=== PATIENT | female | born 1945 | race Caucasian/White ===

== ENCOUNTER 2022-06-18 16:02 | Emergency (ER) | payer MEDICARE, SELFPAY ==
--- NOTE | ~2022-06-18 | CT_ITS ---
EXAMINATION: CT HEAD WITHOUT CONTRAST (STROKE PROTOCOL) CLINICAL INFORMATION: Stroke protocol. COMPARISON: None TECHNIQUE: Contiguous axial imaging was performed from the skull base to vertex without intravenous administration of contrast. This CT examination was performed using dose optimization techniques as appropriate, variously including the following: *Automated exposure control *Adjustment of mA and/or kV according to patient size (this includes techniques or standardized protocols for targeted exams where dose is matched to indication/reason for exam; i.e. extremities or head) *Use of iterative reconstruction technique DLP: 680 mGy-cm FINDINGS: No intracranial hemorrhage is identified. No abnormal extra-axial fluid collection is seen. No significant mass effect or midline structure shift. [place]-white matter interface is maintained. There is periventricular white matter low density consistent with microangiopathy. The ventricles, sulci, and cisterns appear unremarkable. Mucosal thickening is seen throughout the paranasal sinuses consistent with chronic sinusitis. No air-fluid levels are appreciated. Mastoid air cells well aerated. CT/CT head for stroke IMPRESSION: No acute intracranial pathology. Findings consistent with microangiopathy. This critical result was discussed with satnam graff at 4:30 PM hours on June 18, 2022. It was ascertained that the content and urgency of the report was understood at the time of direct communication.
--- NOTE | 2022-06-18 16:05 | ECG_ITS ---
Test Reason : stroke alert Blood Pressure : / mmHG Vent. Rate : 074 BPM Atrial Rate : 074 BPM P-R Int : 156 ms QRS Dur : 090 ms QT Int : 386 ms P-R-T Axes : 045 010 040 degrees QTc Int : 428 ms Normal sinus rhythm Nonspecific ST abnormality Abnormal ECG No previous ECGs available Referred By: Jacque Pierce Electronically Signed By:CELINA CHARLTON MD
[2022-06-18 16:11] VITALS: BP 138/68; PULSE 86; O2SAT 99
[2022-06-18 16:19] VITALS: BP 128/46; PULSE 76; RESP 18; TEMP 36.6; O2SAT 96; BMI 37.1
--- NOTE | 2022-06-18 16:21 | ED_ITS ---
HPI - General Adult General Chief complaint: Neuro Symptoms/Deficit Stated complaint: STROKE ALERT, LKWT 4HRS AGO,AMS, R WEAK,-THINNERS Time Seen by Provider: 06/18/22 16:20 Source: patient, family and EMS Mode of arrival: EMS History of Present Illness HPI narrative: 76-year-old female brought in by EMS after the family called them and noted that patient was altered an seem to be weak with difficulty speaking. EMS states that patient is much improved and as per the family the patient walks and talks very well. Last known well was noon. Patient is COVID-19 positive and does not take blood thinners. Related Data Allergies Allergy/AdvReac Type Severity Reaction Status Date / Time No Known Allergies Allergy Verified 06/18/22 16:05 Review of Systems Review of Systems: Positives and negatives as stated in HPI otherwise ROS is unable to be obtained. [facility] Past Medical History Source: nursing notes reviewed Social History Social History Advance Directives: No Advance Directives Information Provided: No Physical Exam ED Vital Signs: Vital Signs - 24 hr 06/18/22 16:19 06/18/22 20:08 Temperature 97.9 F 98.3 F Pulse Rate 76 72 Respiratory Rate 18 12 Blood Pressure 128/46 L 193/76 H Pulse Oximetry 96 98 Oxygen Delivery Method Room Air Room Air BMI result Body Mass Index 37.1 VITAL SIGNS: Reviewed. GENERAL: Well developed, well nourished, in no acute distress. HEAD: Normocephalic/atraumatic, EYES: PERRLA, EOMI intact without pain, no nystagmus/pallor/icterus noted EARS: Ext canals without abnormality, TMs non-bulging and non-erythematous NOSE: Nares patent bilateral OROPHARYNX: no oral lesions noted, posterior pharynx clear and non-erythematous without noted tonsillar enlargement/erythema/exudates NECK: Supple, no adenopathy LUNGS: Normal breath sounds. No adventitious sounds or accessory muscle use. SpO2<> CARDIOVASCULAR: Regular rate and rhythm without noted murmurs, no JVD or lower extremity edema. ABDOMEN: Soft, non-tender, non-distended with bowel sounds. No rigidity. No guarding. No palpable masses or hernias noted MUSCULOSKELETAL: No tenderness, deformities, or effusions noted on gross inspection. EXTREMITIES: No cyanosis, clubbing or edema. SKIN: Inspection of the skin reveals no rashes, ulcerations, jaundice, pallor, or petechiae. NEUROLOGIC: Alert and oriented x 4. Strength and sensation to light touch were grossly intact x 4. NIH Stroke Scale Internal: Initial- Upon Arrival Level of Consciousness: Alert Level of Consciousness Questions: Answers neither question correctly Level of Consciousness Commands: Performs both tasks correctly Best Gaze: Normal Visual: No visual loss Facial Palsy: Normal Motor Arm (Right): No drift Motor Arm (Left): No drift Motor Leg (Right): No drift Motor Leg (Left): No drift Limb Ataxia: Absent Sensory: Normal Best Language: No aphasia Dysarthia: Normal Extinction and Inattention: No abnormality Score: 2 Course Course Course Narrative: 76-year-old female with history and clinical presentation more consistent with possible infectious etiology, NIH-2, no gross motor or sensory loss and will proceed with CT of the head. Review of all investigations negative with the exception of known underlying COVID-19 as well as known UTI. Patient was given 500 cc of normal saline as well as initial antibiotics. On re-evaluation patient requires 2 assist to get to the bedside commode, states he is unable to care for his at home and remaining family are unable to assist. Patient is otherwise medically cleared, on current treatment for her UTI, and will be referred to Case Management and Physical therapy. Reevaluation(s) Reevaluation #1: I examined the patient with Eugenie, the clinical transplant coordinator, and we are in agreement that there are no gross motor or sensory deficits, patient is outside of the window and is not a candidate for tPA at this time. The observed speech difficulties appear more consistent with possible infectious etiology. Time: 16:05 Reevaluation #2: Negative CT of the head called over to Jacque Pierce. Time: 16:30 Reevaluation #3: Patient placed in physician observation because the patient needed more time for evaluation by case management and physical therapy. At the time observation was started the patient's vital signs were stable, patient is alert and oriented, neuro: Nonfocal, CV RRR, lungs clear Time: 21:31 Medical Decision Making Lab Data Result diagrams: 06/18/22 17:44 06/18/22 17:44 Labs: Lab Results 06/18/22 06/18/22 06/18/22 Range/Units 16:30 16:48 17:44 WBC 9.3 (4.8-10.8) X10*3/uL RBC 4.13 L (4.20-5.50) X10*6/uL Hgb 12.4 (12.0-16.0) g/dl Hct 36.7 L (37.0-47.0) % MCV 88.9 (80.0-98.0) fL MCH 30.0 (27.0-33.0) pg MCHC 33.8 (31.0-35.0) g/dl RDW 13.4 (11.0-16.0) % Plt Count 273 (160-400) X10*3/uL MPV 11.3 (9.4-12.3) fL Immature Gran % (Auto) 0.9 H (0.0-0.4) % Neut % (Auto) 76.3 H (45-73) % Lymph % (Auto) 16.3 L (20-40) % Starke % (Auto) 5.6 (2-11) % Eos % (Auto) 0.5 (0-4) % Baso % (Auto) 0.4 (0-2) % Lymph # (Auto) 1.5 (1.2-4.9) X10*3/uL Starke # (Auto) 0.5 (0.1-1.2) X10*3/uL Eos # (Auto) 0.1 (0.0-0.4) X10*3/uL Baso # (Auto) 0.0 (0.0-0.2) X10*3/uL Abs Immat Gran (auto) 0.08 H (0.00-0.03) X10*3/uL Absolute Neuts (auto) 7.1 (2.0-8.3) x10*3/uL Absolute Nucleated RBC 0.000 (0.0-0.012) X10*3/uL Nucleated RBC % (auto) 0.0 (0.0-0.2) /100WBC PT (10.0-13.1) SEC INR (0.9-1.1) APTT (26.0-36.4) SEC Sodium (135-145) mmol/L Potassium (3.3-5.1) mmol/L Chloride (96-108) mmol/L Carbon Dioxide (22-29) mmol/L Anion Gap (12-20) BUN (9-16) mg/dL Creatinine (0.5-1.4) mg/dL Estim Creat Clear Calc Estimated GFR POC Glucose 118 H (60-115) mg/dL Random Glucose (60-115) mg/dL Lactic Acid (0.5-2.0) mmol/L Calcium (8.4-10.2) mg/dL Total Bilirubin (0.0-1.0) mg/dL Direct Bilirubin (0.0-0.5) mg/dL AST (5-31) U/L ALT (0-31) U/L Alkaline Phosphatase (39-117) U/L Total Creatine Kinase (26-140) U/L Troponin I High Sens (<3.5-17.0) ng/L Total Protein (6.5-8.0) g/dL Albumin (3.5-5.0) g/dL Urine Color Urine Appearance Urine pH (5.0-9.0) Ur Specific [place] (1.005-1.025) Urine Protein (Neg-Trace) mg/dL Urine Glucose (UA) (Negative) mg/dL Urine Ketones (Negative) mg/dL Urine Blood (Negative) Urine Nitrite (Negative) Ur Leukocyte Esterase (Negative) Urine RBC (0-2) /HPF Urine WBC (0-5) /HPF Ur Squamous Epith Cells (0-2) /HPF Urine Bacteria (None Seen) Hyaline Casts (0-2) /LPF Influenza Type A (PCR) NEGATIVE (Negative) Influenza Type B (PCR) NEGATIVE (Negative) RSV RNA Qual (PCR) NEGATIVE (Negative) SARS-CoV-2 RNA (RT-PCR) POSITIVE A (Negative) 06/18/22 06/18/22 06/18/22 Range/Units 17:44 17:44 17:44 WBC (4.8-10.8) X10*3/uL RBC (4.20-5.50) X10*6/uL Hgb (12.0-16.0) g/dl Hct (37.0-47.0) % MCV (80.0-98.0) fL MCH (27.0-33.0) pg MCHC (31.0-35.0) g/dl RDW (11.0-16.0) % Plt Count (160-400) X10*3/uL MPV (9.4-12.3) fL Immature Gran % (Auto) (0.0-0.4) % Neut % (Auto) (45-73) % Lymph % (Auto) (20-40) % Starke % (Auto) (2-11) % Eos % (Auto) (0-4) % Baso % (Auto) (0-2) % Lymph # (Auto) (1.2-4.9) X10*3/uL Starke # (Auto) (0.1-1.2) X10*3/uL Eos # (Auto) (0.0-0.4) X10*3/uL Baso # (Auto) (0.0-0.2) X10*3/uL Abs Immat Gran (auto) (0.00-0.03) X10*3/uL Absolute Neuts (auto) (2.0-8.3) x10*3/uL Absolute Nucleated RBC (0.0-0.012) X10*3/uL Nucleated RBC % (auto) (0.0-0.2) /100WBC PT 10.8 (10.0-13.1) SEC INR 0.9 (0.9-1.1) APTT 27.1 (26.0-36.4) SEC Sodium 142 (135-145) mmol/L Potassium 4.8 (3.3-5.1) mmol/L Chloride 104 (96-108) mmol/L Carbon Dioxide 25 (22-29) mmol/L Anion Gap 18 (12-20) BUN 15 (9-16) mg/dL Creatinine 0.90 (0.5-1.4) mg/dL Estim Creat Clear Calc 64.9 Estimated GFR > 60 POC Glucose (60-115) mg/dL Random Glucose 137 H (60-115) mg/dL Lactic Acid (0.5-2.0) mmol/L Calcium 10.2 (8.4-10.2) mg/dL Total Bilirubin 0.6 (0.0-1.0) mg/dL Direct Bilirubin 0.2 (0.0-0.5) mg/dL AST 51 H (5-31) U/L ALT 41 H (0-31) U/L Alkaline Phosphatase 61 (39-117) U/L Total Creatine Kinase 33 (26-140) U/L Troponin I High Sens < 3.5 (<3.5-17.0) ng/L Total Protein 7.3 (6.5-8.0) g/dL Albumin 4.0 (3.5-5.0) g/dL Urine Color Urine Appearance Urine pH (5.0-9.0) Ur Specific [place] (1.005-1.025) Urine Protein (Neg-Trace) mg/dL Urine Glucose (UA) (Negative) mg/dL Urine Ketones (Negative) mg/dL Urine Blood (Negative) Urine Nitrite (Negative) Ur Leukocyte Esterase (Negative) Urine RBC (0-2) /HPF Urine WBC (0-5) /HPF Ur Squamous Epith Cells (0-2) /HPF Urine Bacteria (None Seen) Hyaline Casts (0-2) /LPF Influenza Type A (PCR) (Negative) Influenza Type B (PCR) (Negative) RSV RNA Qual (PCR) (Negative) SARS-CoV-2 RNA (RT-PCR) (Negative) 06/18/22 06/18/22 06/18/22 Range/Units 17:44 17:44 20:04 WBC (4.8-10.8) X10*3/uL RBC (4.20-5.50) X10*6/uL Hgb (12.0-16.0) g/dl Hct (37.0-47.0) % MCV (80.0-98.0) fL MCH (27.0-33.0) pg MCHC (31.0-35.0) g/dl RDW (11.0-16.0) % Plt Count (160-400) X10*3/uL MPV (9.4-12.3) fL Immature Gran % (Auto) (0.0-0.4) % Neut % (Auto) (45-73) % Lymph % (Auto) (20-40) % Starke % (Auto) (2-11) % Eos % (Auto) (0-4) % Baso % (Auto) (0-2) % Lymph # (Auto) (1.2-4.9) X10*3/uL Starke # (Auto) (0.1-1.2) X10*3/uL Eos # (Auto) (0.0-0.4) X10*3/uL Baso # (Auto) (0.0-0.2) X10*3/uL Abs Immat Gran (auto) (0.00-0.03) X10*3/uL Absolute Neuts (auto) (2.0-8.3) x10*3/uL Absolute Nucleated RBC (0.0-0.012) X10*3/uL Nucleated RBC % (auto) (0.0-0.2) /100WBC PT (10.0-13.1) SEC INR (0.9-1.1) APTT (26.0-36.4) SEC Sodium Cancelled (135-145) mmol/L Potassium Cancelled (3.3-5.1) mmol/L Chloride Cancelled (96-108) mmol/L Carbon Dioxide Cancelled (22-29) mmol/L Anion Gap Cancelled (12-20) BUN Cancelled (9-16) mg/dL Creatinine Cancelled (0.5-1.4) mg/dL Estim Creat Clear Calc Cancelled Estimated GFR Cancelled POC Glucose (60-115) mg/dL Random Glucose Cancelled (60-115) mg/dL Lactic Acid 1.8 (0.5-2.0) mmol/L Calcium Cancelled (8.4-10.2) mg/dL Total Bilirubin Cancelled (0.0-1.0) mg/dL Direct Bilirubin (0.0-0.5) mg/dL AST Cancelled (5-31) U/L ALT Cancelled (0-31) U/L Alkaline Phosphatase Cancelled (39-117) U/L Total Creatine Kinase (26-140) U/L Troponin I High Sens (<3.5-17.0) ng/L Total Protein Cancelled (6.5-8.0) g/dL Albumin Cancelled (3.5-5.0) g/dL Urine Color Yellow Urine Appearance Cloudy Urine pH 6.0 (5.0-9.0) Ur Specific [place] 1.015 (1.005-1.025) Urine Protein Negative (Neg-Trace) mg/dL Urine Glucose (UA) Negative (Negative) mg/dL Urine Ketones Negative (Negative) mg/dL Urine Blood Negative (Negative) Urine Nitrite Negative (Negative) Ur Leukocyte Esterase Large (3+) H (Negative) Urine RBC 0-2 (0-2) /HPF Urine WBC >50 H (0-5) /HPF Ur Squamous Epith Cells 0-2 (0-2) /HPF Urine Bacteria None Seen (None Seen) Hyaline Casts 0-2 (0-2) /LPF Influenza Type A (PCR) (Negative) Influenza Type B (PCR) (Negative) RSV RNA Qual (PCR) (Negative) SARS-CoV-2 RNA (RT-PCR) (Negative) ECG Data Attestation: I personally reviewed and interpreted this ECG as follows: Prior ECG tracings: not available for review Interpretation: Normal sinus rhythm, HR-74, no STEMI, but there are ST changes in the anterolateral leads, IL/QRS/QTC is within normal limits. Critical Care Time Critical Care Time Critical Care Time: Yes Total Critical Care Time: 30 Attestation: I personally attest to this time spent taking care of the patient. Discharge Plan Discharge Clinical Impression: Lab test positive for detection of COVID-19 virus, Physical deconditioning, UTI (urinary tract infection) Patient Disposition: Still a Patient
[2022-06-18 16:34] LABS: Glucose, Whole Blood 118 mg/dL (60-115)
--- NOTE | 2022-06-18 16:40 | MHC.STROKE ---
Addendum entered by Eugenie Rick RN 06/18/22 16:55: THE ALSO MENTIONED THAT SHE IS DIABETIC AND WAS STARTED ON METFORMIN A MONTH AGO AND SHE IS NOT TOLERATING THAT AND SHE WAS SHAKING AND HAD TREMORS FROM IT. Original Note: 1555 EMS PRE-NOTIFIED STROKE ALERT, ARRIVED 1602. LKW APPROX, 1200. EXAMINED BY DR MONTIEL AND MYSELF, NIHSS =[address] DONE PATIENT C/O PAIN UPON MOVING HER, SHE WAS SLOW TO RESPOND TO QUESTIONS AND VAGUE. UNABLE TO DETERMINE WHAT CERTAIN ITEMS ARE. FAMILY ARRIVED AND THEY SAID SHE HAD A SIMILAR PRESENTATION A MONTH AGO AND WENT OT [facility], THE DAUGHTER SEES DR. SWEET AND SHE MADE AN APPOINTMENT FOR HER MOM ON Jun FOR A SECOND OPINION. THEY SAID SHE HAS BEEN WEAK ALL OVER, C/O PAIN, TO CLARIFY THE LKW THE SAID TODAY SHE WAS FINE UNITL 11-12 AND THEN SHE GOT UP TO VACUUM AND BEGAN FEELING WEAK AGAIN, SHE SAT DOWN AND HAD A HARD TIME GETTING UP, NO ENERGY, THE DAUGHTER CAME OVER AND SHE WAS STILL WEAK AND C/O GENERALIZED ACHES AND PAINS, AT ONE POINT SHE WASN'T ABLE TO WALK TO THE BATHROOM AND ATTEND TO HER NEEDS AND THEN THE DAUGHTER DECIDED TO CALL 911 AFTER 3PM TODAY. 3 DAYS AGO THE DAUGHTER DID A HOME COVID TEST AND IT WAS POSITIVE. CASE DISCUSSED WITH DR MONTIEL AND NIHSS = 2 AND ONSET AROUND 4.5 [facility] PL[facility] CARE TEAM UNABLE TO DETERMINE ELIGIBILITY DUE TO NON-FOCAL NEURO SYMPTOMS, NO FACIAL DROOP, NO DRIFT OF ARMS, HER LEGS ARE HEAVY AND SLIGHT EDEMA, PAIN UPON MOVING BOTH LEGS, VAGUE ANSWERS TO QUESTIONS AND DECREASED LOC, + COVID 3 DAYS AGO, SHE IS NOT A CANDIDATE FOR TPA BASED ON THESE FACTORS.
[2022-06-18 17:32] LABS: Influenza A PCR NEGATIVE (Negative); Influenza B PCR NEGATIVE (Negative); Resp Syncy Virus RNA Qual PCR NEGATIVE (Negative); SARS COV2 PCR INHOUSE POSITIVE (Negative)
[2022-06-18 18:06] LABS: INTERNATIONAL NORM RATIO 0.9 (0.9-1.1); Prothrombin Time 10.8 SEC (10.0-13.1)
[2022-06-18 18:08] LABS: Partial Thromboplastin Time 27.1 SEC (26.0-36.4)
[2022-06-18 18:10] LABS: Stroke Lab Use COMPLETE
[2022-06-18 18:16] LABS: Lactic Acid 1.8 mmol/L (0.5-2.0)
[2022-06-18 18:17] LABS: MANUAL DIFF FLAG NO
[2022-06-18 18:19] LABS: Basophils Percent Auto 0.4 % (0-2); Eosinophils Absolute Auto 0.1 X10*3/uL (0.0-0.4); Eosinophils Percent Auto 0.5 % (0-4); Hematocrit 36.7 % (37.0-47.0); Hemoglobin 12.4 g/dl (12.0-16.0); Imm Gran Abs Auto 0.08 X10*3/uL (0.00-0.03); Imm Gran Pct Auto 0.9 % (0.0-0.4); Lymphocytes Absolute Auto 1.5 X10*3/uL (1.2-4.9); Lymphocytes Percent Auto 16.3 % (20-40); Mean Corpuscular HGB Conc 33.8 g/dl (31.0-35.0); Mean Corpuscular Volume 88.9 fL (80.0-98.0); Mean Platelet Volume 11.3 fL (9.4-12.3); Monocytes Absolute Auto 0.5 X10*3/uL (0.1-1.2); Monocytes Percent Auto 5.6 % (2-11); Neutrophils Absolute Auto 7.1 x10*3/uL (2.0-8.3); Neutrophils Percent Auto 76.3 % (45-73); Platelet Count 273 X10*3/uL (160-400); Red Blood Count 4.13 X10*6/uL (4.20-5.50); Red Cell Distribution Width 13.4 % (11.0-16.0); White Blood Count 9.3 X10*3/uL (4.8-10.8)
[2022-06-18 18:22] LABS: Alanine Aminotransferase 41 U/L (0-31); Alkaline Phosphatase 61 U/L (39-117); Anion Gap 18 (12-20); Aspartate Amino Transferase 51 U/L (5-31); Bilirubin Direct 0.2 mg/dL (0.0-0.5); Bilirubin Total 0.6 mg/dL (0.0-1.0); Blood Urea Nitrogen 15 mg/dL (9-16); Calcium 10.2 mg/dL (8.4-10.2); Carbon Dioxide 25 mmol/L (22-29); Chloride 104 mmol/L (96-108); Creatinine Clr Calc Pharmacy 64.9; Estimated Glomerular Filt Rate > 60; Glucose Random 137 mg/dL (60-115); Potassium 4.8 mmol/L (3.3-5.1); Sodium 142 mmol/L (135-145); Total Protein 7.3 g/dL (6.5-8.0)
[2022-06-18 18:26] LABS: Troponin-I High Sensitivity < 3.5 ng/L (<3.5-17.0)
[2022-06-18] MEDS: 0.9 % Sodium Chloride 500 ML 999 ML IV (19:59)
[2022-06-18 20:08] VITALS: BP 193/76; PULSE 72; RESP 12; TEMP 36.8; O2SAT 98
[2022-06-18 20:17] LABS: Appearance Urine Cloudy; Color Urine Yellow; Glucose Urine UA Negative (Negative); Leukocyte Esterase Urine Large (3+) (Negative); Nitrite Urine Negative (Negative); Specific Gravity - Urine 1.015 (1.005-1.025); UMIC TRIGGER UACC YES; Urine Blood Negative (Negative); Urine Ketones Negative (Negative); Urine Protein Negative (Neg-Trace)
[2022-06-18 20:22] LABS: Bacteria Urine None Seen (None Seen); Hyaline Casts Urine 0-2 /LPF (0-2); RBC Urine 0-2 /HPF (0-2); Squamous Epithelial Cell Urine 0-2 /HPF (0-2); UACC Culture Trigger YES; WBC Urine >50 /HPF (0-5)
[2022-06-18] MEDS: cefTRIAXone sodium 1 GM in 0.9 % Sodium Chloride 50 ML IV (21:43)
--- NOTE | 2022-06-18 21:55 | PC.NURSE ---
LATE ENTRY- this rn spoke with pt's daughter and . pt's verbalized feeling uncomfortable with pt being discharged given her status prior to coming to ED. this rn discussed husbands concerns with Dr Parks. Provided put in order for PT/ CM. Discussed this plan with pt daughter as well as patient
--- NOTE | 2022-06-18 22:26 | MHC.CM.PN ---
CM met with patient at request of Dr. Parks. Pt diagnosed with UTI and +covid. Pt needed 2 assist to get up to commode. PT pending. Pt agreeable to STR if recommended. Care Port given of facilities that accept [facility] Medicare. Referrals placed. Pt lives with . Uses no DME/services. Independent. Pt had Pfizer x2 and Boosters x3. No HCP on file. HCP reviewed, completed and signed. Copies given. Uploaded into Care [employer] and [facility]. HCP#1 Clotilde Rivera (daughter) [phone] and HCP#2/son Diego Ruffin ([phone]). CM to follow for d/c needs.
[2022-06-18 22:40] VITALS: BP 145/55; PULSE 68; RESP 9; TEMP 36.8; O2SAT 97
[2022-06-19 04:29] VITALS: BP 167/71; PULSE 59; RESP 11; TEMP 37; O2SAT 98
[2022-06-19 05:36] LABS: Glucose, Whole Blood 114 mg/dL (60-115)
--- NOTE | 2022-06-19 06:01 | PC.NURSE ---
ORIANA DIANE made aware of old Stroke Inr order on Pt Tracker
[2022-06-19 07:53] VITALS: BP 138/59; PULSE 60; RESP 18; TEMP 36.8; O2SAT 94
[2022-06-19 08:49] VITALS: BP 138/59; PULSE 60; O2SAT 94
[2022-06-19 09:04] LABS: Glucose, Whole Blood 121 mg/dL (60-115)
[2022-06-19] MEDS: Amoxicillin/Potassium Clav 875 MG TABLET PO ×2 (09:35→20:36)
--- NOTE | 2022-06-19 09:47 | PC.NURSE ---
Pt alert/oriented. Seen by physical therapy who will recommend short term rehab. Pt aware. Pivot to bedside commode with minimal assist. Denies pain. Speech is clear. Spoke with daughter Clotilde early this AM who is aware of plan for PT/Case management. Pt ate breakfast approx 50%. VSS
--- NOTE | 2022-06-19 10:38 | PHA.MEDREC ---
Pharmacy Consult ? Medication Reconciliation Pharmacy has completed the medication reconciliation. Spoke with ([phone]) and confirmed medications. Cross-referenced with claim history.
[2022-06-19] MEDS: glipiZIDE XL 2.5 MG TAB.ER.24 PO (11:40)
[2022-06-19] MEDS: metFORMIN HCl ER 500 MG TAB.ER.24H PO ×2 (11:40→20:36)
[2022-06-19] MEDS: Fenofibrate 54 MG TABLET PO (11:40)
[2022-06-19] MEDS: lisinopriL 2.5 MG TABLET PO (11:41)
[2022-06-19] MEDS: Cholecalciferol (Vitamin D3) 25 MCG TABLET PO (11:41)
[2022-06-19] MEDS: atenoloL 25 MG TABLET PO (11:41)
--- NOTE | 2022-06-19 14:23 | MHC.CM.ED ---
Pt continues to hold in the ED with COVID + status and weakness. 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 Although her payor, [employer] gives certain contracted SNF 'good pranav' prior auth, her CG status will require administration approval on Tuesday, 06/21 per [facility] referrals. All other centers have either declined until she is Covid recovered ( day 6 vs day 11) or have not yet responded. Message left for pt's dtr Clotilde to call back. ED CM to discuss above w/pt. ED CM to follow.
[2022-06-19 15:54] VITALS: BP 150/62; PULSE 71; RESP 18; TEMP 36.9; O2SAT 96
[2022-06-19 17:13] LABS: Glucose, Whole Blood 95 mg/dL (60-115)
--- NOTE | 2022-06-19 18:54 | PC.NURSE ---
pt was moved into a hospital bed .
--- NOTE | 2022-06-19 18:55 | PC.NURSE ---
pt ate 100 % of dinner ,drank 360 ml fluids .
[2022-06-19 21:03] VITALS: BP 138/52; PULSE 69; RESP 18; TEMP 36.8; O2SAT 99
[2022-06-19 21:12] LABS: Glucose, Whole Blood 127 mg/dL (60-115)
--- NOTE | 2022-06-19 23:10 | PC.NURSE ---
Report received from ORIANA Ramos at 3pm. Pt has been resting comfortably all day. Pt was switched into hospital bed for comfort. Pt is independently ambulatory throughout her room using the commode. Pt ate 100% of her dinner and has reported no pain throughout the day. Pt is sleeping at this time, respirations are even and unlabored
[2022-06-20 06:49] VITALS: BP 139/62; PULSE 68; RESP 18; TEMP 36.9; O2SAT 99
[2022-06-20] MEDS: Fenofibrate 54 MG TABLET PO (09:10)
[2022-06-20] MEDS: Ondansetron ODT 4 MG TAB.RAPDIS TRANSLINGU (09:10)
[2022-06-20] MEDS: atenoloL 25 MG TABLET PO (09:10)
[2022-06-20] MEDS: lisinopriL 2.5 MG TABLET PO (09:10)
[2022-06-20] MEDS: Cholecalciferol (Vitamin D3) 25 MCG TABLET PO (09:10)
[2022-06-20] MEDS: Amoxicillin/Potassium Clav 875 MG TABLET PO (09:10)
[2022-06-20] MEDS: metFORMIN HCl ER 500 MG TAB.ER.24H PO (09:10)
[2022-06-20] MEDS: glipiZIDE XL 2.5 MG TAB.ER.24 PO (09:10)
[2022-06-20 09:12] VITALS: BP 141/83; PULSE 104; RESP 20; O2SAT 99
--- NOTE | 2022-06-20 09:12 | PC.NURSE ---
Addendum entered by Rachel Pa 06/20/22 09:14: tolerated approx 50% of breakfast Original Note: Pt alert/oriented x 3 . reports nausea this AM, no active vomiting noted, zofran given with AM meds, VSS. Spoke with daughter Clotilde this AM and updated on active search for SNF at this time. Breathing easy/unlabored, sat 99% on room air. Skin pwd.
[2022-06-20 11:12] LABS: Glucose, Whole Blood 110 mg/dL (60-115)
[2022-06-20 11:20] VITALS: BP 135/52; PULSE 70; RESP 18; TEMP 36.9; O2SAT 95
--- NOTE | 2022-06-20 12:37 | MHC.CM.ED ---
Met with pt and dtr to review d/c plan. Explained the need for [facility] auth tomorrow in light of the facility concerns from the PT eval. Pt's dtr Clotilde and pt both feel that pt would fare better at home. Clotilde is able to stay with pt for a day or so to assist with home transition. Both receptive to a [facility] referral which was placed. ED care team in agreement w/pt returning to home with [facility] services. Clotilde to tranport pt home.
== END 2022-06-20 12:34 | disposition home or self-care (01) ==
PROVIDERS: Nurse Practitioner Family; Emergency Provider Student in an Organized Health Care Education/Training Program; PCP Internal Medicine
DX: U07.1 COVID-19 (principal); N39.0 Urinary tract infection, site not specified; R29.702 NIHSS score 2; R41.82 Altered mental status, unspecified; R26.81 Unsteadiness on feet; Z79.899 Other long term (current) drug therapy
CPT/HCPCS: 0241U; 36415; 70450; 80053; 80076; 81001; 82248; 82550; 82947; 83605; 84484; 85025; 85610; 85730; 87040; 87086; 93005; 96361; 96365; 97162; 99285; J0696

== ENCOUNTER 2022-08-03 09:49 | Outpatient (REF) | payer MEDICARE, SELFPAY ==
--- NOTE | ~2022-08-03 | MR_ITS ---
EXAMINATION: MRI OF THE BRAIN WITHOUT CONTRAST CLINICAL INFORMATION: Right thalamic stroke. COMPARISON: CT scan of the head 06/18/2022. TECHNIQUE: MRI of the brain was obtained using routine sequences without contrast. FINDINGS: No diffusion abnormalities are identified to suggest an acute or subacute infarct. No mass effect or midline shift is seen. The ventricles and sulci are slightly commensurately prominent. There are scattered areas of hyperintense T2 and FLAIR signal in the periventricular and subcortical white matter, as well as within the sam most consistent with chronic microvascular ischemic changes. No extra-axial fluid collections are seen. The cerebellum appears normal. No pathologic magnetic susceptibility artifact is identified on the gradient refocused acquisition. The craniovertebral junction, marrow signal, and midline structures are normal. The major intracranial flow-voids at the level of the [place] are preserved. The dural venous sinus flow-voids are maintained. There have been bilateral lens extractions. The patient is edentulous in the mandible and the maxilla. The mastoid air cells and paranasal sinuses are well-aerated. MR/MR head/brain wo con IMPRESSION: 1. There are no acute bleeds or territorial infarcts. No masses are demonstrated. 2. There are chronic microvascular ischemic changes and there is diffuse volume loss.
== END 2022-08-03 09:50 | disposition home or self-care (01) ==
LOC: HO.MRI 09:49
PROVIDERS: Visit Provider Psychiatry & Neurology Neurology
DX: I63.9 Cerebral infarction, unspecified (principal)
CPT/HCPCS: 70551

== ENCOUNTER 2022-08-11 13:46 | Emergency (ER) | payer MEDICARE, SELFPAY ==
[2022-08-11 14:24] VITALS: BP 157/64; PULSE 89; RESP 16; O2SAT 96; BMI 34.4
--- NOTE | 2022-08-11 14:25 | ED.FEMALEGU ---
HPI - Female Genitourinary General Chief complaint: Urogenital-Female <BOLA Ortiz - Last Filed: 08/11/22 14:27> Stated complaint: ?uti <BOLA Ortiz - Last Filed: 08/11/22 14:27> Time Seen by Provider: 08/11/22 14:35 <BOLA Ortiz - Last Filed: 08/11/22 14:27> Source: patient <Sarah Parks MD - Last Filed: 08/11/22 17:39> Mode of arrival: ambulatory <Sarah Parks MD - Last Filed: 08/11/22 17:39> History of Present Illness HPI Narrative: This is a pleasant 77-year-old female who states that she has been feeling some pressure to urinate but also states that she has been constipated and denies any pain, burning or frequency and denies any fevers or chills. <Sarah Parks MD - Last Filed: 08/11/22 17:39> Related Data Home medications: Home Medications Medication Instructions Recorded Confirmed atenolol 25 mg tablet 1 tab PO DAILY 06/18/22 06/18/22 cholecalciferol (vitamin D3) 25 1 tab PO DAILY 06/18/22 06/18/22 mcg (1,000 unit) tablet fenofibrate nanocrystallized 48 mg 1 tab PO DAILY 06/18/22 06/18/22 tablet glipizide 2.5 mg tablet, extended 1 tab PO DAILY 06/18/22 06/18/22 release 24 hr lisinopril 2.5 mg tablet 1 tab PO DAILY 06/18/22 06/18/22 metformin 500 mg tablet,extended 1 tab PO BID 06/18/22 06/18/22 release 24 hr Previous Rx's Medication Instructions Recorded cephalexin 500 mg capsule 500 mg PO Q6H 7 days #28 caps 06/20/22 <BOLA Ortiz - Last Filed: 08/11/22 14:27> Allergies/Adverse reactions: Allergies Allergy/AdvReac Type Severity Reaction Status Date / Time No Known Allergies Allergy Verified 08/11/22 14:26 <BOLA Ortiz - Last Filed: 08/11/22 14:27> Review of Systems Review of Systems: Pertinent positives and negatives as stated in HPI. <Sarah Parks MD - Last Filed: 08/11/22 17:39> PMFSH Past Medical History Source: nursing notes reviewed <Sarah Parks MD - Last Filed: 08/11/22 17:39> Social History Social History: Social History Advance Directives: Yes Advance Directives on File: Yes Advance Directives Date on File: 06/19/22 <BOLA Ortiz - Last Filed: 08/11/22 14:27> Physical Exam Vital Signs: Vital Signs: Last Vital Signs Temp 98.0 F 08/11/22 16:00 Pulse 75 08/11/22 16:00 Resp 18 08/11/22 16:00 BP 115/47 L 08/11/22 16:00 Pulse Ox 98 08/11/22 16:00 O2 Del Method 08/11/22 16:00 BMI result Body Mass Index 34.4 <BOLA Ortiz - Last Filed: 08/11/22 14:27> Vital Signs: Last Vital Signs Temp 98.0 F 08/11/22 16:00 Pulse 75 08/11/22 16:00 Resp 18 08/11/22 16:00 BP 115/47 L 08/11/22 16:00 Pulse Ox 98 08/11/22 16:00 O2 Del Method 08/11/22 16:00 BMI result Body Mass Index 34.4 VITAL SIGNS: Reviewed. GENERAL: Well developed, well nourished, in no acute distress. HEAD: Normocephalic/atraumatic EYES: PERRLA, EOMI LUNGS: Normal breath sounds. No adventitious sounds or accessory muscle use. SpO2<98> CARDIOVASCULAR: Regular rate and rhythm without noted murmurs ABDOMEN: Soft, non-tender, non-distended with bowel sounds. SKIN: Inspection of the skin reveals no rashes NEUROLOGIC: Alert and oriented x 4. Strength and sensation to light touch were grossly intact x 4. <Sarah Parks MD - Last Filed: 08/11/22 17:39> Course Course Course Narrative: 14:25 - 77 yo female with history of previous UTI presents to the ER with suprapubic pressure and increase frequency for the last few days. No fevers, N/V or dysuria. Will check UA. <BOLA Ortiz - Last Filed: 08/11/22 14:27> Medical Decision Making Medical Decision Making MDM Narrative: 77-year-old female who likely has bladder pressure secondary to underlying constipation, I did review prior urine cultures which demonstrated mixed gino in June of this year. On review of urinalysis results there is a significant amount of squamous epithelium, I discussed this with the patient and she is agreeable to waiting until the urine culture has been resulted before pursuing antibiotics if they are indicated. She understands that she will follow-up with her primary care provider in the next 1-2 days to check on the urine culture results. She is otherwise discharged home in stable condition. <Sarah Parks MD - Last Filed: 08/11/22 17:39> Lab Data Labs: Lab Results 08/11/22 Range/Units 16:06 Urine Color Dark Yellow Urine Appearance Cloudy Urine pH 5.0 (5.0-9.0) Ur Specific [place] >= 1.030 H (1.005-1.025) Urine Protein Trace (Neg-Trace) mg/dL Urine Glucose (UA) Negative (Negative) mg/dL Urine Ketones Trace (Negative) mg/dL Urine Blood Negative (Negative) Urine Nitrite Negative (Negative) Ur Leukocyte Esterase Moderate (2+) H (Negative) Urine RBC 3-5 H (0-2) /HPF Urine WBC >50 H (0-5) /HPF Ur Squamous Epith Cells 6-10 (0-2) /HPF Calcium Oxalate Crystal Present Urine Bacteria None Seen (None Seen) Hyaline Casts >20 (0-2) /LPF <BOLA Ortiz - Last Filed: 08/11/22 14:27> Lab Results 08/11/22 Range/Units 16:06 Urine Color Dark Yellow Urine Appearance Cloudy Urine pH 5.0 (5.0-9.0) Ur Specific [place] >= 1.030 H (1.005-1.025) Urine Protein Trace (Neg-Trace) mg/dL Urine Glucose (UA) Negative (Negative) mg/dL Urine Ketones Trace (Negative) mg/dL Urine Blood Negative (Negative) Urine Nitrite Negative (Negative) Ur Leukocyte Esterase Moderate (2+) H (Negative) Urine RBC 3-5 H (0-2) /HPF Urine WBC >50 H (0-5) /HPF Ur Squamous Epith Cells 6-10 (0-2) /HPF Calcium Oxalate Crystal Present Urine Bacteria None Seen (None Seen) Hyaline Casts >20 (0-2) /LPF <Sarah Parks MD - Last Filed: 08/11/22 17:39> Discharge Plan Discharge Clinical Impression: Sensation of pressure in bladder area <BOLA Ortiz - Last Filed: 08/11/22 14:27> Patient Disposition: Home, Self-Care <BOLA Ortiz - Last Filed: 08/11/22 14:27> Instructions: High Fiber Diet (ED), Constipation (ED) <BOLA Ortiz - Last Filed: 08/11/22 14:27> Additional Instructions: 1. Resume all home medications as prescribed. 2. Your constipation may be contributing to your symptoms of bladder pressure. 3. Please follow-up with your primary care provider in the next 1-2 days so that they can check on your urine culture results and prescribed antibiotics as needed. If you have any change in your symptoms for health please do not hesitate to return to the emergency room. <BOLA Ortiz - Last Filed: 08/11/22 14:27> Prescriptions: No Action atenolol 25 mg tablet 1 tab PO DAILY glipizide 2.5 mg tablet extended release 24hr 1 tab PO DAILY metformin 500 mg tablet extended release 24 hr 1 tab PO BID lisinopril 2.5 mg tablet 1 tab PO DAILY fenofibrate nanocrystallized 48 mg tablet 1 tab PO DAILY cholecalciferol (vitamin D3) 25 mcg (1,000 unit) tablet 1 tab PO DAILY cephalexin 500 mg capsule 500 mg PO Q6H 7 Days Qty: 28 0RF <BOLA Ortiz - Last Filed: 08/11/22 14:27> Referrals: Kala Burks MD [Primary Care Provider] - (Please follow-up on patient's urine culture.) <BOLA Ortiz - Last Filed: 08/11/22 14:27>
[2022-08-11 14:57] VITALS: BP 146/82; PULSE 77; RESP 20; O2SAT 97
[2022-08-11 16:00] VITALS: BP 115/47; PULSE 75; RESP 18; TEMP 36.7; O2SAT 98
[2022-08-11 16:20] LABS: Appearance Urine Cloudy; Color Urine Dark Yellow; Glucose Urine UA Negative (Negative); Leukocyte Esterase Urine Moderate (2+) (Negative); Nitrite Urine Negative (Negative); Specific Gravity - Urine >= 1.030 (1.005-1.025); UMIC TRIGGER UACC YES; Urine Blood Negative (Negative); Urine Ketones Trace mg/dL (Negative); Urine Protein Trace mg/dL (Neg-Trace)
[2022-08-11 16:33] LABS: Bacteria Urine None Seen (None Seen); Calcium Oxalate Crystals Urine Present; Hyaline Casts Urine >20 /LPF (0-2); UACC Culture Trigger YES; WBC Urine >50 /HPF (0-5)
== END 2022-08-11 17:58 | disposition home or self-care (01) ==
PROVIDERS: Physician Assistant; Emergency Provider Student in an Organized Health Care Education/Training Program; PCP Internal Medicine
DX: R39.89 Other symptoms and signs involving the genitourinary system (principal); K59.00 Constipation, unspecified; Z79.899 Other long term (current) drug therapy
CPT/HCPCS: 81001; 87086; 99282; 99283